=== PATIENT | male | born 1960 | race Caucasian/White ===

== ENCOUNTER 2018-07-05 00:55 | Inpatient (IN) | payer MEDICARE, MEDICAID ==
[~2018-07-05] VITALS: Ht 208.3 cm; Wt 129.0 kg
[2018-07-05 03:10] LABS: Basophils # (auto) 0.1 uL; Basophils % (auto) 0.6 % (0.0-2.0); Eosinophils # (auto) 0 uL; Eosinophils % (auto) 0.4 % (0.0-7.0); Hematocrit 41.8 % (41.0-53.0); Hemoglobin 13.5 g/dL (13.5-17.5); Lymphocytes % (auto) 22.6 % (10.0-50.0); Mean Corpuscular Hgb Conc. 32.4 g/dL (32.0-36.0); Mean Corpuscular Volume 89.6 fL (80.0-100.0); Monocytes # (auto) 0.6 uL; Monocytes % (auto) 7.1 % (0.0-12.0); Neutrophils # (auto) 6.3 uL; Neutrophils % (auto) 69.3 % (37.0-80.0); Nucleated Red Blood Cells % 0.1 %; Platelet Count (auto) 169 10^3/uL (140-450); Red Blood Cells 4.66 10^6/uL (4.5-5.90); Red Cell Distribution Width 15.3 % (11.8-14.3)
[2018-07-05 03:18] LABS: BUN/Creatinine Ratio 11.3; Calcium 7.9 mg/dL (8.5-10.1); Potassium 3.8 mmol/L (3.5-5.1)
[2018-07-05 03:27] LABS: Bilirubin, Total 0.7 mg/dL (0.2-1.0); Total Protein 6.8 g/dL (6.4-8.2)
[2018-07-05] MEDS ORDERED: NITROGLYCERIN 0.4 MG SL TAB SL ONE (03:45)
[2018-07-05] MEDS ORDERED: MORPHINE SULFATE 4 MG/ML SYR/VIAL IV ONE (03:45)
[2018-07-05] MEDS ORDERED: ASPirin 81 mg TAB PO ONE (03:45)
[2018-07-05] MEDS ORDERED: FUROSEMIDE 40 MG/4 ML VIAL IV ONE (04:00)
[2018-07-05] MEDS ORDERED: FUROSEMIDE 40 MG/4 ML VIAL ONE (04:38)
[2018-07-05] MEDS ORDERED: ALBUTEROL SULF 2.5 MG/0.5ML(0.5%) NEB SOLN NEB ONE (05:15)
[2018-07-05] MEDS ORDERED: LEVOFLOXACIN 500MG 100 ML IV ONE (05:15)
[2018-07-05] MEDS ORDERED: IPRATROPIUM BROM 0.5 MG/2.5ML INH SOL NEB ONE (05:15)
[2018-07-05] MEDS ORDERED: cefTRIAXone 1GM/50ML D5W 50 ML IV ONE (05:15)
[2018-07-05] MEDS ORDERED: ACETAMINOPHEN 500 MG TAB PO PRN (05:45)
[2018-07-05] MEDS ORDERED: ONDANSETRON HCL 4 MG/2 ML VIAL IV PRN (05:45)
[2018-07-05] MEDS: FUROSEMIDE 40 MG/4 ML VIAL IV SCH ×2 (06:00→18:22)
[2018-07-05 06:41] LABS: Lactic Acid w/Reflex 2.1 mmol/L (0.4-2.0)
[2018-07-05] MEDS ORDERED: ENOXAPARIN SOD 150 MG/1 ML SYRINGE SC ONE (07:16)
[2018-07-05] MEDS: PANTOPRAZOLE 40 MG/10 ML VIAL IV SCH (07:50)
[2018-07-05] MEDS: CARVEDILOL 3.125 MG TAB PO SCH ×2 (07:50→22:13)
[2018-07-05] MEDS: ENOXAPARIN SOD 120 MG/0.8 ML SYRINGE SC SCH ×2 (08:01→22:13)
[2018-07-05 08:22] LABS: Urine Bacteria NONE SEEN /hpf (None Seen); Urine Blood Negative /uL (Negative); Urine Specific Gravity 1.011 (1.001-1.035); Urine WBC <1 /hpf (0 - 3)
[2018-07-05] MEDS ORDERED: ASPirin 81 mg TAB ONE (10:04)
[2018-07-05] MEDS: ASPirin-EC 81 mg tab PO SCH (10:04)
[2018-07-05] MEDS: ALBUTEROL SULF 2.5 MG/0.5ML(0.5%) NEB SOLN NEB SCH (18:00)
[2018-07-05] MEDS: IPRATROPIUM BROM 0.5 MG/2.5ML INH SOL NEB SCH (18:00)
--- NOTE | 2018-07-05 18:16 | NUR ---
WOUND CARE NOTE: Wound care in to see patient per wound care request regarding " toes wound/early gangrene" that are noted present on admission. Claire nurse took photograph of patient's wounds upon admission for reference. Patient is 58 y/o male with admitting diagnosis of Acute on Chronic Diastolic /Systolic heart Failure. Patient is resting in ER bed #11. Patient is awake, alert and oriented. Patient is in no stated pain at this time. He reported that he's ambulatory and he's self turn and reposition. His current Sonido score is 17. Noted patient's distal R great toe and distal R second toe has black discoloration. His L great toe at plantar aspect has 2x1.5cm stable eschar. Distal tip of his L second toe and L 3rd toe has black discoloration. There's light anette black discoloration noted to plantar aspect of bilateral. Toes has thick callused/hyperkeratotic dry skin. Pedal pulse present. No drainage or odor noted. Patient reported that two discoloration started about two to three weeks. He added that a year ago he was hospitalized at [place] for wound to his L great toe and he was told that he "has no circulation to his foot". Patient admitted that after discharge in [facility] he did not followed up with foot doctor. US of BLE shows no DVT. CT of Foot are done (see result). Patient has podiatry and cardiology consult ordered. He's seen by household appliances salesperson Dr. Waters and ordered daily cleaning of Sodium Hypochlorite and BID application of Triple antibiotic to necrotic/blackened toes. No other wound noted. RECOMMENDATION: Follow Dr. Waters order for daily cleaning of wounds and BID application of triple antibiotic ointment, dietary consult due to presence of wounds, cardiology consult/vascular surgeon's consult, redistribute pressure points with pillows, Masoud foam boots to BLE, continue monitoring by wound care while patient is hospitalized. Addendum: 07/05/18 at 1848 by Jayla Templeton RN Amended: Links added.
[2018-07-05 19:40] VITALS: BP 150/89
[2018-07-05] MEDS ORDERED: ATORVASTATIN 20 MG TAB PO SCH (22:00)
[2018-07-05] MEDS: CLINDAMYCIN 300MG IV 50 ML IV SCH (22:12)
[2018-07-05] MEDS ORDERED: MORPHINE SULFATE 4 MG/ML SYR/VIAL IV PRN (22:15)
[2018-07-06] MEDS: IPRATROPIUM BROM 0.5 MG/2.5ML INH SOL NEB SCH ×3 (00:27→12:19)
[2018-07-06] MEDS: ALBUTEROL SULF 2.5 MG/0.5ML(0.5%) NEB SOLN NEB SCH ×3 (00:27→12:19)
[2018-07-06] MEDS: CLINDAMYCIN 300MG IV 50 ML IV SCH ×2 (05:37→14:00)
[2018-07-06] MEDS: FUROSEMIDE 40 MG/4 ML VIAL IV SCH (05:38)
[2018-07-06 06:21] LABS: Basophils # (auto) 0 uL; Basophils % (auto) 0.4 % (0.0-2.0); Eosinophils # (auto) 0.1 uL; Eosinophils % (auto) 1.3 % (0.0-7.0); Lymphocytes # (auto) 2.8 uL; Lymphocytes % (auto) 31.6 % (10.0-50.0); Mean Corpuscular Hemoglobin 29.5 pg (28.0-32.0); Mean Corpuscular Hgb Conc. 33.4 g/dL (32.0-36.0); Mean Corpuscular Volume 88.3 fL (80.0-100.0); Monocytes # (auto) 0.7 uL; Monocytes % (auto) 8.1 % (0.0-12.0); Neutrophils # (auto) 5.3 uL; Neutrophils % (auto) 58.6 % (37.0-80.0); Nucleated Red Blood Cells % 0.1 %; Platelet Count (auto) 142 10^3/uL (140-450); Red Blood Cells 4.42 10^6/uL (4.5-5.90); Red Cell Distribution Width 15.3 % (11.8-14.3)
[2018-07-06 06:34] LABS: BUN/Creatinine Ratio 11.3; Calcium 7.9 mg/dL (8.5-10.1); Potassium 4.1 mmol/L (3.5-5.1)
[2018-07-06] MEDS ORDERED: cefTRIAXone 1GM/50ML D5W 50 ML IV SCH (09:00)
[2018-07-06] MEDS: CARVEDILOL 3.125 MG TAB PO SCH (09:48)
[2018-07-06] MEDS: PANTOPRAZOLE 40 MG/10 ML VIAL IV SCH (09:48)
[2018-07-06] MEDS: ENOXAPARIN SOD 120 MG/0.8 ML SYRINGE SC SCH (09:48)
[2018-07-06] MEDS: ASPirin-EC 81 mg tab PO SCH (09:48)
[2018-07-06] MEDS ORDERED: NEOMYCIN-BACITRACIN-POLYM UNITDOSE PKG TOP OINT TOP SCH (10:00)
[2018-07-06] MEDS ORDERED: DAKINS QUARTER STR 0.125% (NaHypochlorite) 473 ML TOPICAL SOL TOP SCH (10:00)
[2018-07-06 14:16] VITALS: BP 112/82
[2018-07-07] MEDS ORDERED: ENALAPRIL MALEATE 2.5 MG TAB PO SCH (10:00)
[2018-07-07] MEDS ORDERED: SPIRONOLACTONE 25 MG TAB PO SCH (10:00)
== END 2018-07-06 14:37 | disposition home or self-care (01) | DRG 871 ==
LOC: EDBD 00:55 → ER 01:00 → TELE 04:41
PROVIDERS: ADMIT Nurse Practitioner Family; ATTEND Internal Medicine
DX: A41.9 Sepsis, unspecified organism (principal); I50.43 Acute on chronic combined systolic (congestive) and diastolic (congestive) heart failure; J18.9 Pneumonia, unspecified organism; I21.4 Non-ST elevation (NSTEMI) myocardial infarction; I13.0 Hypertensive heart and chronic kidney disease with heart failure and stage 1 through stage 4 chronic kidney disease, or unspecified chronic kidney disease; J44.0 Chronic obstructive pulmonary disease with (acute) lower respiratory infection; J44.1 Chronic obstructive pulmonary disease with (acute) exacerbation; J45.901 Unspecified asthma with (acute) exacerbation; I48.92 Unspecified atrial flutter; E44.0 Moderate protein-calorie malnutrition; D68.69 Other thrombophilia; I96 Gangrene, not elsewhere classified; M86.9 Osteomyelitis, unspecified; N18.3 Chronic kidney disease, stage 3 (moderate); B35.1 Tinea unguium; E66.9 Obesity, unspecified; F15.10 Other stimulant abuse, uncomplicated; F17.210 Nicotine dependence, cigarettes, uncomplicated; I20.9 Angina pectoris, unspecified; I25.5 Ischemic cardiomyopathy; I48.91 Unspecified atrial fibrillation; I50.84 End stage heart failure; J20.9 Acute bronchitis, unspecified; L84 Corns and callosities
CPT/HCPCS: 36415; 71045; 73700; 80048; 80053; 81001; 83036; 83605; 83735; 83880; 84484; 85025; 86850; 86900; 86901; 87040; 87077; 87186; 87205; 93005; 93306; 93925; 93970; 94640; 94761; 96365; 96375; 99291; C9113; G0378; J0696; J1956; J2405; J3490